=== PATIENT | female | born 1985 | race Caucasian/White ===

== ENCOUNTER 2019-03-17 21:22 | Inpatient (IN) | payer MEDICAID ==
[2019-03-17 21:59] LABS: ADD UMIC YES; UR ASCORBIC ACID 40 mg/dL (NEGATIVE); UR BILIRUBIN (Dip) NEGATIVE (NEGATIVE); UR BLOOD (Dip) NEGATIVE (NEGATIVE); UR CALCIUM OXALATE CRYSTAL MODERATE /HPF (NONE SEEN); UR CLARITY SLIGHTLY CLOUDY (CLEAR); UR COLOR YELLOW (YELLOW); UR GLUCOSE (Dip) NEGATIVE (NEGATIVE); UR KETONES (Dip) NEGATIVE (NEGATIVE); UR LEUKOCYTE ESTERASE (Dip) 1+ Leu/ul (NEGATIVE); UR MUCUS FEW /HPF (NONE SEEN); UR NITRITE (Dip) NEGATIVE (NEGATIVE); UR RBC 2 /HPF (0-5); UR SPECIFIC GRAVITY (Dip) 1.019 (1.003-1.030); UR SQUAMOUS EPITHELIAL CELL FEW /HPF (FEW); UR TOTAL PROTEIN (Dip) NEGATIVE (NEGATIVE); UR UROBILINOGEN (Dip) NEGATIVE (NEGATIVE); UR WBC 4 /HPF (0-5)
[2019-03-17] MEDS: ACETAMINOPHEN 500 MG TAB PO (22:50)
[2019-03-18] MEDS ORDERED: LACTATED RINGER'S 1,000 ML IV (00:33)
[2019-03-18] MEDS: LACTATED RINGER'S 1,000 ML IV ×3 (00:40→13:39)
[2019-03-18] MEDS ORDERED: METHYLERGONOVINE 0.2 MG INJ IM (01:00)
[2019-03-18] MEDS ORDERED: BUTORPHANOL 2 MG INJ IV ×2 (01:00)
[2019-03-18] MEDS ORDERED: OXYTOCIN 30 UNITS/LR 500 ML IV ×3 (01:00)
[2019-03-18] MEDS ORDERED: CARBOPROST 250 MCG INJ IM (01:00)
[2019-03-18] MEDS ORDERED: LIDOCAINE 1% (MPF) 30 ML INJ INJ (01:00)
[2019-03-18] MEDS ORDERED: IBUPROFEN 600 MG TAB PO (01:00)
[2019-03-18] MEDS ORDERED: MISOPROSTOL 200 MCG TAB PR (01:00)
[2019-03-18 01:17] LABS: ADD MAN DIFF? NO
[2019-03-18 01:19] LABS: BASOPHILS % 0.2 % (0.0-2.0); EOSINOPHILS # 0.1 10^3/ul (0.0-0.5); EOSINOPHILS % 1.4 % (0.0-7.0); HEMATOCRIT 31.6 % (37.0-47.0); HEMOGLOBIN 10.4 g/dl (12.0-16.0); LYMPHOCYTES # 1.8 10^3/ul (0.8-2.9); LYMPHOCYTES % 20.1 % (15.0-51.0); MEAN CORPUSCULAR HEMOGLOBIN 27.6 pg (29.0-33.0); MEAN CORPUSCULAR HGB CONC 32.9 g/dl (32.0-37.0); MEAN CORPUSCULAR VOLUME 83.8 fl (82.0-101.0); MEAN PLATELET VOLUME 10.2 fl (7.4-10.4); MONOCYTE # 0.6 10^3/ul (0.3-0.9); MONOCYTES % 6.7 % (0.0-11.0); NEUTROPHIL # 6.1 10^3/ul (1.6-7.5); NEUTROPHILS % 70.5 % (39.0-77.0); PLATELET COUNT 216 10^3/UL (140-415); RED BLOOD COUNT 3.77 10^6/ul (4.20-5.40); RED CELL DISTRIBUTION WIDTH 13.2 % (11.5-14.5)
[2019-03-18 01:19] LABS: WHITE BLOOD COUNT 8.7 10^3/ul (4.8-10.8)
[2019-03-18] MEDS: BETAMET NA PHOS/AC(6 MG/ML) 2 ML INJ SYG IM (01:30)
[2019-03-18] MEDS: AMPICILLIN 2 GM/NS (PMX) 100 ML IV (01:30)
[2019-03-18 01:38] LABS: INR 0.86; PROTIME 11.8 Sec (11.9-14.9); PT RATIO 0.9
[2019-03-18 01:39] LABS: PARTIAL THROMBOPLASTIN TIME 29.7 Sec (23.0-35.0)
[2019-03-18 02:37] LABS: HEPATITIS B SURFACE ANTIGEN NEGATIVE (NEGATIVE)
[2019-03-18] MEDS: AMPICILLIN 1 GM/NS (PMX) 50 ML IV ×6 (05:24→20:44)
[2019-03-18] MEDS: TERBUTALINE 1 MG/ML INJ SC (12:42)
[2019-03-18] MEDS: NIFEdipine 10 MG CAP PO ×2 (13:32→19:48)
[2019-03-18 22:27] LABS: RAPID PLASMA REAGIN NONREACTIVE (NR)
[2019-03-19] MEDS: NIFEdipine 10 MG CAP PO ×3 (00:53→12:00)
[2019-03-19] MEDS: BETAMET NA PHOS/AC(6 MG/ML) 2 ML INJ SYG IM (00:54)
[2019-03-19] MEDS: AMPICILLIN 1 GM/NS (PMX) 50 ML IV ×3 (00:54→09:12)
[2019-03-19] MEDS: LACTATED RINGER'S 1,000 ML IV ×2 (00:54→12:09)
== END 2019-03-19 12:20 | disposition home or self-care (01) | DRG 833 ==
LOC: OBT 21:22 → L-D 21:24
DX: O60.03 Preterm labor without delivery, third trimester (principal); Z3A.35 35 weeks gestation of pregnancy
CPT/HCPCS: 76815; 76818; 81001; 85025; 85610; 85730; 86592; 86850; 86900; 86901; 87086; 87340

== ENCOUNTER 2019-04-14 12:05 | Inpatient (IN) | payer MEDICAID ==
[2019-04-14] MEDS ORDERED: MISOPROSTOL 200 MCG TAB PR ×2 (13:00→21:00)
[2019-04-14] MEDS ORDERED: CARBOPROST 250 MCG INJ IM ×2 (13:00→21:00)
[2019-04-14] MEDS ORDERED: METHYLERGONOVINE 0.2 MG INJ IM ×2 (13:00→21:00)
[2019-04-14] MEDS ORDERED: IBUPROFEN 600 MG TAB PO (13:00)
[2019-04-14] MEDS: MINERAL OIL LIGHT 10 ML VIAL TOP (13:00)
[2019-04-14] MEDS ORDERED: OXYTOCIN 30 UNITS/LR 500 ML IV ×2 (13:00→21:00)
[2019-04-14] MEDS ORDERED: BUTORPHANOL 2 MG INJ IV (13:00)
[2019-04-14 13:17] LABS: ADD MAN DIFF? NO
[2019-04-14 13:23] LABS: WHITE BLOOD COUNT 10.9 10^3/ul (4.8-10.8)
[2019-04-14 13:23] LABS: BASOPHILS % 0.2 % (0.0-2.0); EOSINOPHILS # 0.1 10^3/ul (0.0-0.5); EOSINOPHILS % 0.5 % (0.0-7.0); HEMATOCRIT 36.7 % (37.0-47.0); HEMOGLOBIN 11.8 g/dl (12.0-16.0); LYMPHOCYTES # 2.4 10^3/ul (0.8-2.9); LYMPHOCYTES % 21.5 % (15.0-51.0); MEAN CORPUSCULAR HGB CONC 32.2 g/dl (32.0-37.0); MEAN PLATELET VOLUME 10.7 fl (7.4-10.4); MONOCYTE # 0.6 10^3/ul (0.3-0.9); MONOCYTES % 5.9 % (0.0-11.0); NEUTROPHIL # 7.8 10^3/ul (1.6-7.5); NEUTROPHILS % 70.9 % (39.0-77.0); PLATELET COUNT 216 10^3/UL (140-415); RED BLOOD COUNT 4.37 10^6/ul (4.20-5.40); RED CELL DISTRIBUTION WIDTH 13.5 % (11.5-14.5)
[2019-04-14] MEDS: LACTATED RINGER'S 1,000 ML IV ×2 (13:24→13:53)
[2019-04-14] MEDS: AMPICILLIN 2 GM/NS (PMX) 100 ML IV (13:25)
[2019-04-14 13:40] LABS: INR 0.87; PARTIAL THROMBOPLASTIN TIME 28.1 Sec (23.0-35.0); PROTIME 11.9 Sec (11.9-14.9); PT RATIO 0.9
[2019-04-14] MEDS ORDERED: DIPHENHYDRAMINE 50 MG INJ IV (14:00)
[2019-04-14] MEDS ORDERED: FENTAnyl 2MCG/ML-ROPIV 0.2% 100 ML BAG EPI (14:00)
[2019-04-14] MEDS ORDERED: NALOXONE (0.4 MG/ML) INJ IV (14:00)
[2019-04-14] MEDS ORDERED: HYDROmorphONE 0.5 MG/0.5 ML SYG IV ×2 (14:00)
[2019-04-14] MEDS ORDERED: ONDANSETRON 4 MG INJ IV (14:00)
[2019-04-14] MEDS ORDERED: KETOROLAC 30 MG INJ IV (14:00)
[2019-04-14 14:08] LABS: HEPATITIS B SURFACE ANTIGEN NEGATIVE (NEGATIVE)
[2019-04-14 14:59] LABS: RAPID PLASMA REAGIN NONREACTIVE (NR)
[2019-04-14] MEDS ORDERED: AMPICILLIN 1 GM/NS (PMX) 50 ML IV (17:00)
[2019-04-14] MEDS: OXYTOCIN 30 UNITS/LR 500 ML IV ×2 (18:13→18:19)
[2019-04-14] MEDS: LIDOCAINE 1% (MPF) 30 ML INJ INJ (18:33)
[2019-04-14] MEDS: ACETAMINOPHEN 500 MG TAB PO (19:45)
[2019-04-14] MEDS: KETOROLAC 30 MG INJ IV (19:45)
[2019-04-14] MEDS ORDERED: ZOLPIDEM 5 MG TAB PO (21:00)
[2019-04-14] MEDS ORDERED: HYDROCODONE/APAP (5/325) TAB PO (21:00)
[2019-04-14] MEDS: SENNA/DOCUSATE NA (8.6MG/50MG) TAB PO (21:00)
[2019-04-14] MEDS: MAGNESIUM HYDROXIDE 30ML CUP PO (21:00)
[2019-04-14] MEDS ORDERED: DIBUCAINE 1% 30 GM OINT TOP (21:00)
[2019-04-14] MEDS: BENZOCAINE 20% 56 ML SPRAY TOP (21:21)
[2019-04-14] MEDS: WITCH HAZEL/GLYCERIN PAD PR (21:21)
[2019-04-14] MEDS: CEPHALEXIN 500 MG CAP PO (23:39)
[2019-04-14] MEDS: IBUPROFEN 600 MG TAB PO (23:39)
[2019-04-14] MEDS: LACTATED RINGER'S 1,000 ML IV* (23:40)
[2019-04-15] MEDS: LANOLIN HPA 1 PKT TOP (04:49)
[2019-04-15] MEDS: LACTATED RINGER'S 1,000 ML IV* ×3 (04:49→20:49)
[2019-04-15] MEDS: CEPHALEXIN 500 MG CAP PO ×4 (05:37→23:49)
[2019-04-15] MEDS: IBUPROFEN 600 MG TAB PO ×4 (05:38→23:49)
[2019-04-15 06:52] LABS: ADD MAN DIFF? NO
[2019-04-15 06:59] LABS: BASOPHILS % 0.3 % (0.0-2.0); EOSINOPHILS # 0.1 10^3/ul (0.0-0.5); EOSINOPHILS % 0.9 % (0.0-7.0); HEMATOCRIT 28.5 % (37.0-47.0); LYMPHOCYTES # 1.8 10^3/ul (0.8-2.9); LYMPHOCYTES % 15.4 % (15.0-51.0); MEAN CORPUSCULAR HEMOGLOBIN 27.1 pg (29.0-33.0); MEAN CORPUSCULAR HGB CONC 31.6 g/dl (32.0-37.0); MEAN CORPUSCULAR VOLUME 85.8 fl (82.0-101.0); MEAN PLATELET VOLUME 10.8 fl (7.4-10.4); MONOCYTE # 0.8 10^3/ul (0.3-0.9); MONOCYTES % 6.5 % (0.0-11.0); NEUTROPHIL # 8.7 10^3/ul (1.6-7.5); NEUTROPHILS % 75.6 % (39.0-77.0); PLATELET COUNT 160 10^3/UL (140-415); RED BLOOD COUNT 3.32 10^6/ul (4.20-5.40); RED CELL DISTRIBUTION WIDTH 13.7 % (11.5-14.5)
[2019-04-15 06:59] LABS: WHITE BLOOD COUNT 11.6 10^3/ul (4.8-10.8)
[2019-04-15] MEDS: HYDROCODONE/APAP (5/325) TAB PO ×2 (08:08→15:52)
[2019-04-15] MEDS: SENNA/DOCUSATE NA (8.6MG/50MG) TAB PO ×2 (08:08→21:25)
[2019-04-15] MEDS: MAGNESIUM HYDROXIDE 30ML CUP PO ×2 (08:08→21:25)
[2019-04-16] MEDS: LACTATED RINGER'S 1,000 ML IV* (04:49)
[2019-04-16] MEDS: CEPHALEXIN 500 MG CAP PO ×2 (05:36→12:21)
[2019-04-16] MEDS: IBUPROFEN 600 MG TAB PO ×2 (05:36→12:21)
[2019-04-16] MEDS: MEASLES,MUMPS,RUBELLA VACCINE INJ SC* (09:21)
[2019-04-16] MEDS: SENNA/DOCUSATE NA (8.6MG/50MG) TAB PO (09:21)
[2019-04-16] MEDS: MAGNESIUM HYDROXIDE 30ML CUP PO (09:21)
[2019-04-16] MEDS: VARICELLA VACCINE LIVE/PF 1,350 UNIT/0.5 ML ML SC* (09:21)
[2019-04-16] MEDS: DIPHTH/TET/ACEL PERTUSS (ADULT) 0.5 ML VIAL IM* (09:38)
== END 2019-04-16 15:40 | disposition home or self-care (01) | DRG 807 ==
LOC: OBT 12:05 → L-D 12:07 → OBT 12:45 → L-D 12:45 → PP1 19:42
PROVIDERS: Obstetrics & Gynecology
PROC: 10E0XZZ Delivery of Products of Conception, External Approach (ICD-10-PCS; principal; 2019-04-14)
PROC: 0W8NXZZ Division of Female Perineum, External Approach (ICD-10-PCS; 2019-04-14)
DX: O10.92 Unspecified pre-existing hypertension complicating childbirth (principal); Z37.0 Single live birth; O76 Abnormality in fetal heart rate and rhythm complicating labor and delivery; Z3A.39 39 weeks gestation of pregnancy
CPT/HCPCS: 62322; 85025; 85610; 85730; 86592; 86850; 86900; 86901; 87340; 90716